=== PATIENT | female | born 1995 | race Two or more races ===

== ENCOUNTER 2022-12-17 11:32 | Emergency (ER) | payer OTHER, SELFPAY ==
[2022-12-17 11:35] VITALS: BP 160/102; PULSE 84; RESP 18; TEMP 36.8; O2SAT 97; BMI 49.1
--- NOTE | 2022-12-17 12:05 | ED.FEMALEGU1 ---
HPI - Female Genitourinary General Chief complaint: Vaginal Bleeding Stated complaint: VAGINAL BLEED Time Seen by Provider: 12/17/22 11:58 Source: patient Mode of arrival: walk-in Limitations: no limitations History of Present Illness HPI Narrative: 27-year-old female presents for heavy vaginal bleeding. She's had an IUD since February and typically she'll spot for a few days each month. This time the bleeding became heavier and she passed some clots. She is willing abdominal cramping which is moderate. She called her OBs office who told her to go to the emergency room. No fever or injury. Related Data Home Medications Medication Instructions Recorded Confirmed dulaglutide 0.75 mg/0.5 mL 0.75 mg subcut QWEEK 12/17/22 12/17/22 subcutaneous pen injector (Trulicity) losartan 25 mg tablet (Cozaar) 25 mg PO DAILY 12/17/22 12/17/22 metformin 850 mg tablet 850 mg PO BID 12/17/22 12/17/22 Allergies Allergy/AdvReac Type Severity Reaction Status Date / Time No Known Drug Allergies Allergy Verified 12/17/22 11:41 Review of Systems ROS Narrative A ten point review of systems is negative except as noted above. Exam Narrative Exam Narrative: Nurses note and vital signs reviewed and patient is not hypoxic. General: The patient appears well and in no apparent distress. Patient is resting comfortably on cart. Skin: Warm, dry, no pallor noted. There is no rash noted. Head: Normocephalic, atraumatic Eye: Normal conjunctiva, no drainage Ears, Nose, Mouth, and Throat: oral mucosa is moist. Nares patent. Cardiovascular: Regular Rate and Rhythm Respiratory: Patient is in no distress, no accessory muscle use, lungs are clear to auscultation, no wheezing, rales or rhonchi Back: non-tender GI: soft and mild tenderness across her lower abdomen. No distention Musculoskeletal: The patient has no evidence of calf tenderness, no pitting edema, symmetrical pulses noted bilaterally Neurological: A&O, normal speech Psychiatric: Cooperative Constitutional Vital Signs, click to edit/add: Last Vital Signs Temp 98.3 F 12/17/22 11:35 Pulse 84 12/17/22 11:35 Resp 18 12/17/22 11:35 BP 160/102 H 12/17/22 11:35 Pulse Ox 97 12/17/22 11:35 O2 Del Method Room Air 12/17/22 11:35 Course Vital Signs Vital signs: Vital Signs Temperature 98.3 F 12/17/22 11:35 Pulse Rate 84 12/17/22 11:35 Respiratory Rate 18 12/17/22 11:35 Blood Pressure 160/102 H 12/17/22 11:35 Pulse Oximetry 97 12/17/22 11:35 Oxygen Delivery Method Room Air 12/17/22 11:35 Temperature 98.3 F 12/17/22 11:35 Pulse Rate 84 12/17/22 11:35 Respiratory Rate 18 12/17/22 11:35 Blood Pressure 160/102 H 12/17/22 11:35 Pulse Oximetry 97 12/17/22 11:35 Oxygen Delivery Method Room Air 12/17/22 11:35 MDM - Female Genitourinary MDM Narrative Medical decision making narrative: hemoglobin is normal and she is not . Ultrasound shows no acute findings per radiologist. 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 Treatment diagnosis and follow-up were discussed with the patient Differential Diagnosis Differential diagnosis: Likely dysmenorrhea and other (uterine fibroid, dysfunctional uterine bleeding, , ectopic ) Lab Data Attestation: I reviewed the patient's lab results. Labs: Lab Results 12/17/22 Range/Units 12:39 WBC 6.3 (4.0-11.0) 10^3/uL RBC 5.06 (4.20-5.40) 10^6/uL Hgb 14.7 (12.0-16.0) g/dL Hct 43.9 (36.0-48.0) % MCV 86.8 (81.0-99.0) fL MCH 29.1 (26.7-34.0) pg MCHC 33.5 (29.9-35.2) g/dL RDW 13.2 (11.0-15.0) % Plt Count 222 (150-450) 10^3/uL MPV 10.4 (9.5-13.5) fL Neut % (Auto) 75.5 H (43.0-75.0) % Lymph % (Auto) 15.1 L (20.5-60.0) % Gaines % (Auto) 7.3 (1.7-12.0) % Eos % (Auto) 1.1 (0.9-7.0) % Baso % (Auto) 0.5 (0.2-2.0) % Neut # (Auto) 4.8 (1.4-6.5) 10^3/uL Lymph # (Auto) 1.0 L (1.2-3.8) 10^3/uL Gaines # (Auto) 0.5 (0.3-0.8) 10^3/uL Eos # (Auto) 0.1 (0.0-0.7) 10^3/uL Baso # (Auto) 0.0 (0.0-0.1) 10^3/uL Abs Immat Gran (auto) 0.03 (0.00-0.03) 10^3/uL Imm/Tot Granulo (auto) 0.5 (0.0-0.5) % Sodium 137 (136-145) mmol/L Potassium 3.8 (3.5-5.1) mmol/L Chloride 103 (98-107) mmol/L Carbon Dioxide 25.1 (21.0-32.0) mmol/L Anion Gap 12.7 BUN 11.0 (7.0-18.0) mg/dL Creatinine 0.67 (0.55-1.02) mg/dL Est GFR ( Amer) >60 (>=60) Est GFR (Non-Af Amer) >60 (>=60) BUN/Creatinine Ratio 16.4 Glucose 93 (74-106) mg/dL Calcium 8.7 (8.5-10.1) mg/dL Serum HCG, Qual Negative (NEGATIVE) Discharge Plan Discharge Chief Complaint: Vaginal Bleeding Clinical Impression: Dysfunctional uterine bleeding Patient Disposition: Home, Self-Care Time of Disposition Decision: 14:53 Condition: Good Mode of Transportation: Private Vehicle Prescriptions / Home Meds: No Action losartan [Cozaar] 25 mg tablet 25 mg PO DAILY metformin 850 mg tablet 850 mg PO BID Trulicity 0.75 mg/0.5 mL pen injector 0.75 mg subcut QWEEK Instructions: Abnormal (Dysfunctional) Uterine Bleeding (ED) Additional Instructions: follow-up with your air compressor engineer Stand Alone Forms: Portal Instructions Referrals: Dilan Ramirez DO [Primary Care Provider] - 1 week
[2022-12-17 12:53] LABS: Basophils Percent Auto 0.5 % (0.2-2.0); Eosinophils Absolute Auto 0.1 10^3/uL (0.0-0.7); Eosinophils Percent Auto 1.1 % (0.9-7.0); Hematocrit 43.9 % (36.0-48.0); Hemoglobin 14.7 g/dL (12.0-16.0); Immature Granulocytes Abs Auto 0.03 10^3/uL (0.00-0.03); Immature Granulocytes Pct Auto 0.5 % (0.0-0.5); Lymphocytes Percent Auto 15.1 % (20.5-60.0); Mean Corpuscular HGB Conc 33.5 g/dL (29.9-35.2); Mean Corpuscular Hemoglobin 29.1 pg (26.7-34.0); Mean Corpuscular Volume 86.8 fL (81.0-99.0); Mean Platelet Volume 10.4 fL (9.5-13.5); Monocytes Absolute Auto 0.5 10^3/uL (0.3-0.8); Monocytes Percent Auto 7.3 % (1.7-12.0); Neutrophils Absolute Auto 4.8 10^3/uL (1.4-6.5); Neutrophils Percent Auto 75.5 % (43.0-75.0); Platelet Count 222 10^3/uL (150-450); Red Blood Count 5.06 10^6/uL (4.20-5.40); Red Cell Distribution Width 13.2 % (11.0-15.0); White Blood Count 6.3 10^3/uL (4.0-11.0)
[2022-12-17 13:09] LABS: Anion Gap 12.7; BUN Creatinine Ratio 16.4; Calcium 8.7 mg/dL (8.5-10.1); Carbon Dioxide 25.1 mmol/L (21.0-32.0); Chloride 103 mmol/L (98-107); Estimated GFR (African America >60 (>=60); Estimated GFR (Non-African Ame >60 (>=60); Glucose 93 mg/dL (74-106); Potassium 3.8 mmol/L (3.5-5.1); Sodium 137 mmol/L (136-145)
[2022-12-17 13:17] LABS: HCG Qualitative NEGATIVE (NEGATIVE)
--- NOTE | 2022-12-17 13:20 | US_ITS ---
The [address] [address] Patient Name: JOSELITO NOGUEIRA MRN: [id number] date: 1995 Sex: F Assigned Patient Location: ER Current Patient Location: ER Accession/Order Number: [id number] Exam Date: 12/17/2022 13:35 Report Date: 12/17/2022 14:22 At the request of: YESSICA ORDOÑEZ Procedure: US pelvis transvaginal EXAMINATION: US pelvis transvaginal HISTORY: heavy vaginal bleeding COMPARISON: No relevant comparison available. TECHNIQUE: Transabdominal and/or transvaginal sonographic examination was performed as indicated by examination type. FINDINGS: UTERUS: Grossly normal size and appearance. Uterus size: 5.6 x 4.1 x 3.3 cm ENDOMETRIUM: IUD within lower endometrial cavity. No abnormal thickening of endometrium. Endometrial thickness: 6 mm RIGHT OVARY: Normal size and appearance. Duplex Doppler demonstrates normal waveform and flow; resistive index 0.5. Ovary size: 2.3 x 2.3 x 2.3 cm LEFT OVARY: Normal size and appearance. Duplex Doppler demonstrates normal waveform and flow; resistive index 0.5. Ovary size: 2.2 x 1.9 x 1.8 cm CUL-DE-SAC: Unremarkable. No significant free fluid. BLADDER: Unremarkable. OTHER: None. US/US pelvis transvaginal IMPRESSION: 1. Limited examination due to uterine position. 2. No acute or suspicious findings. 3. IUD positioned within the lower endometrial cavity. Electronically authenticated by: HECTOR HUGHES Date: 12/17/2022 14:22
== END 2022-12-17 15:12 | disposition home or self-care (01) ==
PROVIDERS: Emergency Provider Emergency Medicine; PCP Obstetrics & Gynecology
DX: N93.8 Other specified abnormal uterine and vaginal bleeding (principal); Z79.84 Long term (current) use of oral hypoglycemic drugs; Z79.899 Other long term (current) drug therapy
CPT/HCPCS: 36415; 76830; 80048; 84703; 85025; 99284